=== PATIENT | male | born 1975 | race Two or more races ===

== ENCOUNTER 2019-03-01 21:05 | Emergency (ER) | payer SELFPAY ==
[~2019-03-01] VITALS: Ht 167.6 cm; Wt 77.1 kg
[2019-03-01 21:13] VITALS: BP 164/94
--- NOTE | 2019-03-01 21:26 | PHYS DOC ---
Past Medical History Past Medical History: Diabetes-Type II, High Cholesterol, Hypertension (LAKE MCADAMS DO) Past Surgical History: No Surgical History (LAKE MCADAMS DO) Additional Information: Nonsmoker Alcohol Use: None Drug Use: None (LAKE MCADAMS DO) Adult General Chief Complaint Chief Complaint: SEXUALLY TRANSMITTED DISEASE HPI HPI Patient is a 43 year old male with history of diabetes type 2, hypertension, high cholesterol, who presents to the ED today with the , was seen by me a couple minutes ago and was diagnosed with Trichomonas. Patient signed in to be treated. Patient denies any symptoms. (SWETA EDMONDS APRN) Review of Systems Review of Systems Constitutional: Denies fever or chills [] : Reports concern for STDs. Denies dysuria or hematuria [] Musculoskeletal: Denies back pain or joint pain [] Integument: Denies rash or skin lesions [] Neurologic: Denies headache, focal weakness or sensory changes [] All other systems were reviewed and found to be within normal limits, except as documented in this note. (SWETA EDMONDS APRN) Current Medications Current Medications Current Medications Medications (Trade) Dose Ordered Sig/Martin Start Time Stop Time Status Last Admin Dose Admin Azithromycin (Zithromax) 1,000 mg 1X ONCE 03/01/19 22:00 03/01/19 22:01 DC 03/01/19 21:48 1,000 MG Ceftriaxone Sodium (Rocephin Im) 250 mg 1X ONCE 03/01/19 22:00 03/01/19 22:01 DC 03/01/19 21:48 250 MG Metronidazole (Flagyl) 2,000 mg 1X ONCE 03/01/19 22:00 03/01/19 22:01 DC 03/01/19 21:48 2,000 MG (LAKE MCADAMS DO) Allergies Allergies Allergies Coded Allergies Type Severity Reaction Last Updated Verified No Known Drug Allergies 03/01/19 No (LAKE MCADAMS DO) Physical Exam Physical Exam Constitutional: Well developed, well nourished, no acute distress, non-toxic appearance. [] Skin: Warm, dry, no erythema, no rash. [] Back: No tenderness, no CVA tenderness. [] Extremities: No tenderness, no cyanosis, no clubbing, ROM intact, no edema. [] Neurologic: Alert and oriented X 3, normal motor function, normal sensory function, no focal deficits noted. [] Psychologic: Affect normal, judgement normal, mood normal. [] (SWETA EDMONDS APRN) Current Patient Data Vital Signs Vital Signs Date Time Temp Pulse Resp B/P (MAP) Pulse Ox O2 Delivery O2 Flow Rate FiO2 03/01/19 21:13 98.4 105 20 164/94 (117) 98 Room Air 98.4 (LAKE MCADAMS DO) EKG EKG [] (SWETA EDMONDS APRN) Radiology/Procedures Radiology/Procedures [] (SWETA EDMONDS APRN) Course & Med Decision Making Course & Med Decision Making Pertinent Labs and Imaging studies reviewed. (See chart for details) This is a 43-year-old male patient who presents to the ED with the , was diagnosed with Trichomonas a few minutes ago. Patient will be treated. STD education provided. D/c top home. (SWETA EDMONDS APRN) Dragon Disclaimer Dragon Disclaimer This electronic medical record was generated, in whole or in part, using a voice recognition dictation system. (SWETA EDMONDS APRN) Departure Departure Impression: Primary Impression: Concern about STD in male without diagnosis Disposition: HOME, SELF-CARE Condition: STABLE (with) Patient Instructions: Sexually Transmitted Disease Additional Instructions: You were were treated for STDS. Please contact all your sex partners, let them know you were treated for STDs and ask them to seek treatment too. Use protection at all times. No sex for ne week. Attending Signature Attending Signature I have reviewed the PA/MONORAIL OPERATOR's note and plan of care. I was available for consultation as needed during the patient's visit in the emergency department. I agree with the clinical impression, plan, and disposition. (LAKE MCADAMS DO) SWETA EDMONDS APRN Mar 01, 2019 21:26 LAKE MCADAMS DO Mar 01, 2019 22:27
[2019-03-01] MEDS ORDERED: METF500T16 PO (21:28)
[2019-03-01] MEDS ORDERED: metroNIDAZOLE 500 MG TABLET PO ONE (22:00)
[2019-03-01] MEDS ORDERED: cefTRIAXone IM 250 MG VIAL IM ONE (22:00)
[2019-03-01] MEDS ORDERED: AZITHROMYCIN 250 MG TABLET. PO ONE (22:00)
== END 2019-03-01 21:56 | disposition home or self-care (01) ==
LOC: ER 21:05
DX: Z20.2 Contact with and (suspected) exposure to infections with a predominantly sexual mode of transmission (principal); E78.00 Pure hypercholesterolemia, unspecified; I10 Essential (primary) hypertension; E11.9 Type 2 diabetes mellitus without complications
CPT/HCPCS: 96372; 99283; J0696; Q0144